=== PATIENT | male | born 1950 | race Caucasian/White ===

== ENCOUNTER 2019-03-08 12:54 | Inpatient (IN) | payer MEDICARE ==
[~2019-03-08] VITALS: Ht 160 cm; Wt 89.8 kg
--- NOTE | ~2019-03-08 | EKG ---
[place], [place] ELECTROCARDIOGRAM REPORT NAME: MELODY SIN UNIT #: [id number] ROOM: 403 DOCTOR: AGATHA DRAFT REPORT BIRTHDATE: [birth year] 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
--- NOTE | ~2019-03-08 | EKG ---
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
--- NOTE | ~2019-03-08 | EKG ---
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
--- NOTE | ~2019-03-08 | CON ---
[place], [place] REPORT OF CONSULTATION NAME: [facility]IN [id number] UNIT #: [id number] ROOM: 403 DOCTOR: BRIAN POPE MD BIRTHDATE: [birth year] DOS: 03/09/2019 REASON FOR CONSULTATION: CHF and elevated troponin. HISTORY OF PRESENT ILLNESS: The patient is a 68-year-old gentleman with history of dyslipidemia, obesity, presented to Emergency Room because of shortness of breath for the past 2 weeks. He is also having intermittent chest pains for the past couple of days. Chest pain is both exertional and nonexertional pain. The patient describes it like a pressure-like sensation lasted about a minute and relieves on its own and it comes back again. He had some occasional lightheadedness along with the chest pain. The chest pain has no radiation. His main complaint is shortness of breath for the past 2 weeks, also has some lower extremity edema. The patient had chronic edema of the right leg since his right knee surgery. He denies any PND or orthopnea, no palpitations, no dizziness, no syncope. No nausea, vomiting, diarrhea. No cough or hemoptysis. REVIEW OF SYSTEMS: Review of 10 systems negative except as mentioned above. PAST MEDICAL HISTORY: 1. Dyslipidemia. 2. Benign prostatic hypertrophy. PAST SURGICAL HISTORY: History of right knee total replacement and skin cancer. SOCIAL HISTORY: The patient is a former smoker, does not use illicit drugs, social alcohol. FAMILY HISTORY: Father at age 76 of lung cancer. Mother at age 89. ALLERGIES: No known drug allergies. HOME MEDICATIONS: Reviewed including Lipitor and tamsulosin. PHYSICAL EXAMINATION: VITAL SIGNS: Blood pressure 110/60, pulse 76, respiration 20, weight 92.8 kg, BMI 36.2. GENERAL: Alert, comfortable, in no acute distress. HEENT: Pupils are round and equal. No jaundice. Tongue was moist and pharynx clear. NECK: Supple, no distended neck veins. No carotid bruit. CHEST: Symmetrical, nontender. LUNGS: Clear to auscultation bilaterally except few scattered rhonchi. HEART: Regular rhythm, no S3. Grade 1/6 systolic murmur. ABDOMEN: Benign, nontender. Bowel sounds normal. EXTREMITIES: Showed right leg 2+ edema, left leg 1+ edema. Distal pulses are fair. NEUROLOGIC: The patient is alert with no focal neurologic deficits. RECTAL: Deferred. GENITOURINARY: Deferred. [place], [place] REPORT OF CONSULTATION NAME: MELODY SIN UNIT #: [id number] ROOM: 403 DOCTOR: NIKO VINCENT,BRIAN BIRTHDATE: [birth year] PSYCHIATRIC: The patient is alert with good mood and affect. REVIEW OF THE DIAGNOSTIC TESTS: EKG shows sinus rhythm with lateral T inversion. CBC, chemistry reviewed. Cardiac Troponins are 0.069, 0.059, 0.051. Imaging studies reviewed. IMPRESSION: 1. Acute congestive heart failure, possible diastolic dysfunction. 2. Elevated troponin suggestive of non-ST elevation myocardial infarction, either recent non-ST elevation myocardial infarction versus type 2 non-ST elevation myocardial infarction. 3. Chest pain. Currently, the patient is chest pain free. 4. Dyslipidemia. 5. Benign prostatic hypertrophy. 6. Non-morbid obesity. RECOMMENDATIONS: 1. Continue diuretics. 2. A 2D echo was ordered and is pending. 3. Start him on low dose aspirin 81 mg and also low-dose beta blockers 12.5 mg twice a day, metoprolol as blood pressure tolerates. 4. Long discussion with the patient, otherwise, his family members, sister and [id number] regarding further cardiac testing, as such 2D echo was ordered and is pending. 5. I would recommend cardiac catheterization due to his new onset heart failure and NSTEMI. The patient will think about it and let me know. 6. However, if the patient developed recurrent chest pain with significant EKG changes, then he might need urgent cardiac catheterization. 7. Risk factor modification for diet, exercise, weight loss discussed. BRIAN POPE MD CM:CONSTR:REPORT OF CONSULTATION [id number] 03/09/19 1908 [id number]
[2019-03-08 12:57] VITALS: BP 122/77
[2019-03-08 13:15] LABS: BASO % 0.6 % (0.0-1.0); EOS # 0.1 10*3/uL (0.0-0.4); EOS % 0.8 % (1.0-4.0); HEMATOCRIT 39.5 % (42.0-52.0); HEMOGLOBIN 12.5 g/dl (14.0-18.0); LYMPH # 1.2 10*3/uL (1.3-4.4); LYMPH % 17.2 % (27.0-41.0); MEAN CELL VOLUME 92.7 fl (80.0-94.0); MEAN CORPUSCULAR HGB 29.3 pg (27.0-31.0); MEAN CORPUSCULAR HGB CONC 31.6 g/dl (33.0-37.0); MONO # 0.5 10*3/uL (0.1-1.0); MONO % 7.4 % (3.0-9.0); NEUT # 5.3 10*3/uL (2.3-7.9); NEUT % 73.7 % (47.0-73.0); PLATELET COUNT AUTOMATED 177 10*3/uL (130-400); RED BLOOD COUNT 4.26 10*6/uL (4.50-5.90); RED CELL DISTRI WIDTH 13.8 % (0-14.5); WHITE BLOOD COUNT 7.1 10*3/uL (4.8-10.8)
[2019-03-08 13:26] LABS: ACT PARTIAL THROMBO TIME 23.8 SECONDS (20.0-32.1)
[2019-03-08 13:32] LABS: ALBUMIN 3.3 gm/dl (3.1-4.5); ALKALINE PHOSPHATASE 81 U/L (45-117); BUN 22 mg/dl (7-24); CHLORIDE 107 mmol/L (98-107); CREATININE 0.88 mg/dL (0.70-1.30); SGOT/AST 19 IU/L (3-35); SGPT/ALT 52 U/L (12-78); SODIUM 140 mmol/L (136-145); TOTAL PROTEIN 6.9 gm/dL (6.4-8.2)
[2019-03-08 13:36] LABS: TROPONIN I 0.069 ng/ml (<0.045)
[2019-03-08 14:00] VITALS: BP 122/74
[2019-03-08 15:10] VITALS: BP 122/74
[2019-03-08] MEDS ORDERED: ATORVASTATIN CA20 M1 PO (15:36)
[2019-03-08] MEDS ORDERED: TAMSULOSIN HCL0.4 MG PO (15:36)
[2019-03-08 16:00] VITALS: BP 121/80
[2019-03-08 20:00] VITALS: BP 104/69
[2019-03-09] VITALS: BP 110/76
[2019-03-09 06:24] LABS: BASO % 0.5 % (0.0-1.0); EOS # 0.1 10*3/uL (0.0-0.4); EOS % 2.1 % (1.0-4.0); HEMOGLOBIN 13.9 g/dl (14.0-18.0); LYMPH # 1.4 10*3/uL (1.3-4.4); MEAN CELL VOLUME 93.2 fl (80.0-94.0); MEAN CORPUSCULAR HGB 28.8 pg (27.0-31.0); MEAN CORPUSCULAR HGB CONC 30.9 g/dl (33.0-37.0); MEAN PLATELET VOLUME 10.6 fl (9.6-12.3); MONO # 0.5 10*3/uL (0.1-1.0); MONO % 8.1 % (3.0-9.0); NEUT # 3.7 10*3/uL (2.3-7.9); NEUT % 65.1 % (47.0-73.0); PLATELET COUNT AUTOMATED 195 10*3/uL (130-400); RED BLOOD COUNT 4.83 10*6/uL (4.50-5.90); WHITE BLOOD COUNT 5.7 10*3/uL (4.8-10.8)
[2019-03-09 06:34] LABS: BUN 21 mg/dl (7-24); CHLORIDE 103 mmol/L (98-107); CHOLESTEROL 144 mg/dL (<200); CREATININE 0.93 mg/dL (0.70-1.30); HDL CHOLESTEROL 46 mg/dl (40-60); LDL CHOLESTEROL 76 mg/dL (9-159); PHOSPHOROUS 3.9 mg/dL (2.5-4.9); POTASSIUM 4.4 mmol/L (3.5-5.1); SODIUM 139 mmol/L (136-145); TRIGLYCERIDES 109 mg/dl (<150); VLDL CHOLESTEROL 22 mg/dL (6-40)
[2019-03-09 07:41] LABS: ACT PARTIAL THROMBO TIME 24.7 SECONDS (20.0-32.1)
[2019-03-09 08:00] VITALS: BP 110/60
[2019-03-09 08:30] LABS: VITAMIN D, 25-HYDROXY 32.8 ng/mL (30-100)
[2019-03-09 12:00] VITALS: BP 124/78
[2019-03-09 16:00] VITALS: BP 111/71
[2019-03-09 20:00] VITALS: BP 109/75
[2019-03-10] VITALS: BP 98/62
[2019-03-10 04:35] VITALS: BP 104/68
== END 2019-03-10 08:15 | disposition short-term general hospital (02) | DRG 280 ==
LOC: ED 12:54 → 4E 14:46 → EDHOLD 14:46 → 4E 14:47
PROVIDERS: Emergency Medicine; ADMIT Internal Medicine
DX: I21.4 Non-ST elevation (NSTEMI) myocardial infarction (principal); I50.31 Acute diastolic (congestive) heart failure; R65.10 Systemic inflammatory response syndrome (SIRS) of non-infectious origin without acute organ dysfunction; N40.1 Benign prostatic hyperplasia with lower urinary tract symptoms; R35.0 Frequency of micturition; Z96.651 Presence of right artificial knee joint; E66.8 Other obesity; E83.41 Hypermagnesemia; D64.9 Anemia, unspecified; E78.5 Hyperlipidemia, unspecified; Z87.891 Personal history of nicotine dependence; Z82.49 Family history of ischemic heart disease and other diseases of the circulatory system; Z85.828 Personal history of other malignant neoplasm of skin; Z80.1 Family history of malignant neoplasm of trachea, bronchus and lung; Z83.3 Family history of diabetes mellitus; Z79.899 Other long term (current) drug therapy; Z68.36 Body mass index [BMI] 36.0-36.9, adult

== ENCOUNTER → 2020-11-01 | Outpatient (CLI) | payer MEDICARE ==
[~2020-11-01] MED LIST: ATORVASTATIN CA20 M1 PO; TAMSULOSIN HCL0.4 MG PO
== END | disposition home or self-care (01) ==
LOC: CARD 10:15
PROVIDERS: ATTEND Internal Medicine Cardiovascular Disease
DX: I34.0 Nonrheumatic mitral (valve) insufficiency (principal); I25.5 Ischemic cardiomyopathy